=== PATIENT | female | born 1960 | race Caucasian/White ===

== ENCOUNTER 2021-06-09 11:03 | Emergency (ER) | payer OTHER ==
[~2021-06-09] VITALS: Ht 160 cm; Wt 81.7 kg
[2021-06-09] MEDS ORDERED: CYMBALTA20 MG PO (11:52)
[2021-06-09] MEDS ORDERED: SEROQUEL 100 M100 M1 PO (11:52)
[2021-06-09] MEDS ORDERED: DETROL1 MG PO (11:53)
[2021-06-09] MEDS ORDERED: DEXAMETHASONE 44 M1 PO (12:50)
[2021-06-09] MEDS ORDERED: ZPAK PO (12:50)
[2021-06-09] MEDS ORDERED: PROMETH-CODEIN 65 ML PO (12:50)
[2021-06-09] MEDS ORDERED: ZOFRAN ODT4 MG DISSOLVE (12:50)
--- NOTE | 2021-06-09 12:57 | EKG ---
[place] [address] ELECTROCARDIOGRAM REPORT Name: JONATHAN DAVIS Room: [facility]#: [id number] Admission: 06/09/21 Attend Phys: Discharge: Date of : 60 Date of Service: 06/09/21 1153 Report #: [id number] THIS REPORT FOR: //name// [facility] ED Test Date: 2021-06-09 Test Time: 11:53:52 Pat Name: JONATHAN MONZON Department: Room: Gender: [employer] Operator: : [id number] Requested By: Joan Murillo Order Number: [id number] MD: Fabricio King Measurements Intervals [place] Rate: 96 P: 52 [place]: 143 QRS: 53 QRSD: 86 T: 4 QT: 344 QTc: 435 Interpretive Statements Sinus rhythm Nonspecific T wave flattening No previous ECG available for comparison Electronically Signed On 06-09-2021 12:57:25 [employer]AREER SERVICES REPRESENTATIVE by Fabricio King [email or web address] <ELECTRONICALLY SIGNED> By: Fabricio King MD, [facility] 06/09/21 [facility] 1153 1153 Fabricio King MD, FACC /EPI
[2021-06-09 13:09] VITALS: BP 134/83
== END 2021-06-09 13:10 | disposition home or self-care (01) ==
LOC: M.ERS 11:03
DX: U07.1 COVID-19 (principal); F12.90 Cannabis use, unspecified, uncomplicated; Z90.710 Acquired absence of both cervix and uterus; Z79.899 Other long term (current) drug therapy